=== PATIENT | male | born 1995 | race Caucasian/White ===

== ENCOUNTER 2016-08-06 17:47 | Emergency (ER) | payer BC, OTHER ==
[~2016-08-06] VITALS: Ht 182.9 cm; Wt 93.5 kg
[2016-08-06 17:50] VITALS: Ht 182.9 cm; Wt 93.5 kg
--- NOTE | 2016-08-06 18:15 | ERD ---
ER Documentation Chief Complaint Date/Time DATE: 08/06/16 TIME: 18:12 Chief Complaint left inguinal area and testicular pain x 2 days HPI Patient is a 21-year-old male who presents to the ED with left testicular pain 2 days. He states that the pain came on mildly yesterday and has gradually increased. He states that the pain is an 8 out of 10. He denies abdominal pain , nausea, vomiting or diarrhea. He denies fever or chills. He states that he is sexually active and does not use protection. He denies dysuria or hematuria. He denies back pain. He denies abnormal penile discharge. He states that he does do weight lifting such as squats. He states that he has never had testicular pain in the past. He states that he has never had a hernia in the past. ROS All systems reviewed and are negative except as per history of present illness. Medications Home Meds Active Scripts Naproxen* (Naprosyn*) 500 Mg Tablet, 500 MG PO BID Y for PAIN AND/OR INFLAMMATION, #30 TAB Prov:CHLOE SPANN PA-C 08/06/16 PMhx/Soc History of Surgery: No Anesthesia Reaction: No Hx Neurological Disorder: No Hx Respiratory Disorders: No Hx Cardiac Disorders: No Hx Psychiatric Problems: No Hx Miscellaneous Medical Probl: No Hx Alcohol Use: No Hx Substance Use: No Hx Tobacco Use: No Physical Exam Vitals Vital Signs Date Time Temp Pulse Resp B/P Pulse Ox O2 Delivery O2 Flow Rate FiO2 08/06/16 19:49 98.3 78 18 108/60 98 08/06/16 17:50 98.0 81 18 113/65 98 Physical Exam GENERAL: Well-developed, well-nourished male. Appears in no acute distress. HEAD: Normocephalic, atraumatic. EYES: Pupils are equally reactive bilaterally. EOMs grossly intact. No conjunctival erythema. ENT: Moist mucous membranes. No uvula deviation. No kissing tonsils. No exudates. NECK: Supple. No lymphadenopathy or thyromegaly. No meningismus. negative kernig. negative brudinski. LUNG: Clear to auscultation bilaterally. No rhonchi, wheezing, rales or coarse breath sounds. HEART: Regular rate and rhythm. No murmurs, rubs or gallops. ABDOMEN: No scars, ecchymosis or rashes noted. Soft, nontender, and nondistended. Positive bowel sounds in all four quadrants. No rebound tenderness , no guarding. (-) McBurneys point tenderness. No CVA tenderness. : bilaterally descended testicles. no swollen or erythema or induration. slightly tender to left testicle. no signs of hernia. SKIN: Normal color. Warm and dry. No rashes or lesions. Capillary refill < 2 seconds Results 24 hrs Laboratory Tests Test 08/06/16 19:27 Bedside Urine pH (LAB) 6.5 Bedside Urine Protein (LAB) 1+ Bedside Urine Glucose (UA) Negative Bedside Urine Ketones (LAB) Negative Bedside Urine Blood Trace-intact Bedside Urine Nitrite (LAB) Negative Bedside Urine Leukocyte Esterase (L Negative Current Medications Medications (Trade) Dose Ordered Sig/Purnima Route PRN Reason Start Time Stop Time Status Last Admin Dose Admin Ibuprofen (Motrin) 800 mg ONCE ONCE PO 08/06/16 18:30 08/06/16 18:30 DC Acetaminophen/ Hydrocodone Bitart ([place] (5/325)) 1 tab ONCE ONCE PO 08/06/16 18:30 08/06/16 18:31 DC 08/06/16 18:52 Procedures/MDM ER COURSE: I kept the patient and/or family informed of laboratory and diagnostic imaging results throughout the emergency room course. IMAGING STUDIES [place] [address] Radiology Main Line: [phone] DIAGNOSTIC IMAGING REPORT Patient: JALEESA FUENTES : 1995 Age: 21 Sex: M MR #: [id number] DOS: 08/06/16 1809 Ordering MD: CHLOE SPANN PA-C Location: [facility] Room/Bed: PROCEDURE: US Scrotum. CLINICAL INDICATION: Left scrotal pain. TECHNIQUE: Multiple sonographic images of the scrotal region were obtained utilizing a linear array transducer with grayscale and color-flow and pulsed Doppler imaging. The images were reviewed on a high-resolution PACS workstation. COMPARISON: No prior studies are available for comparison. FINDINGS: The right testis measures 4.0 x 2.2 x 3.3 cm. The left testis measures 3.8 x 2.6 x 3.6 cm. There is no intratesticular mass. The epididymi are normal. There is normal flow to both testes demonstrated with color Doppler and pulsed Doppler sonography. There is no hydrocele. There is no varicocele. The scrotal wall is unremarkable. IMPRESSION: 1. Unremarkable scrotal ultrasound. RPTAT: QQ .Josh Pearl MD, MD Date Time Electronically viewed and signed by .Josh Pearl MD, on 08/06/2016 18:51 .R/ CC: CHLOE SPANN PA-C MEDICATIONS [place]. Tolerated well with no adverse reaction. Urine dip shows no nitrites or leukocytes MEDICAL DECISION MAKING: This is a 21-year-old male who presents with left testicular pain 2 days. Vital signs were reviewed. Patient is afebrile. Patient is not hypoxic. Patient is nontoxic or ill-appearing. His ultrasound is read by radiologist is unremarkable. I have low suspicion for testicular torsion. Low suspicion for pyelonephritis, UTI, nephrolithiasis, appendicitis, testicular torsion, incarcerated or strangulated hernia. I did not think a CT scan was necessary today as patient did not have inguinal pain and did not have nausea or vomiting. There is no swelling noted. Risk versus benefits of a CT scan were explained to patient. DISCHARGE: At this time, patient is stable for discharge and outpatient management with no new complaints during the ER course. Patient was sent home with Mag[place] and to follow-up with urologist tomorrow. I also advised patient to use scrotal support and anti-inflammatory medication.. Patient will be discharged home with instructions to recheck for new or worsening symptoms such as fever, nausea, weakness, LOC and to follow up with primary care in the next 1-2 days. Patient was advised to return to the ER for any new or worsening symptoms. Plan was discussed and patient and/or family understands and agrees. Home instructions were given. Departure Diagnosis: Primary Impression: Pain in testicle Condition: Stable CHLOE SPANN PA-C August 06, 2016 18:15
[2016-08-06] MEDS ORDERED: HYDROCODONE/APAP (5/325) TAB PO ONE (18:30)
[2016-08-06] MEDS ORDERED: IBUPROFEN 800 MG TAB PO ONE (18:30)
--- NOTE | 2016-08-06 18:51 | RADRPT ---
PROCEDURE: US Scrotum. CLINICAL INDICATION: Left scrotal pain. TECHNIQUE: Multiple sonographic images of the scrotal region were obtained utilizing a linear arra y transducer with grayscale and color-flow and pulsed Doppler imaging. The images were reviewed on a high-resolution PACS workstation. COMPARISON: No prior studies are available for comparison. FINDINGS: The right testis measures 4.0 x 2.2 x 3.3 cm. The left testis measures 3.8 x 2.6 x 3.6 cm. There is no intratesticular mass. The epididymi are normal. There is normal flow to both testes demonstrated with color Doppler and pulsed Doppler sonography. There is no hydrocele. There is no varicocele. The scrotal wall is unremarkable. IMPRESSION: 1. Unremarkable scrotal ultrasound. RPTAT: QQ .Josh Pearl MD, MD Date Time Electronically viewed and signed by .Josh Pearl MD, on 08/06/2016 18:51 .R/
[2016-08-06 19:26] LABS: URINE BLOOD (Dip) POC Trace-intact (NEGATIVE)
[2016-08-06] MEDS ORDERED: NAPR-260 PO (19:28)
[2016-08-06 19:49] VITALS: BP 108/60; PULSE 78; RESP 18; TEMP 98.3
== END 2016-08-06 19:51 | disposition home or self-care (01) ==
LOC: FTE 17:47
DX: N50.812 Left testicular pain (principal)
CPT/HCPCS: 76870; 81003